=== PATIENT | female | born 1975 | race African-American/Black ===

== ENCOUNTER → 2016-11-04 17:27 | Outpatient (CLI) | payer MEDICAID ==
[2009-07-09 06:48] VITALS: BMI 43.1
== END | disposition home or self-care (01) ==
LOC: D.MAMMO 13:15
DX: Z12.31 Encounter for screening mammogram for malignant neoplasm of breast (principal)

== ENCOUNTER 2018-07-26 10:00 | Outpatient (CLI) | payer MEDICAID ==
[2009-07-09 06:48] VITALS: BMI 43.1
== END 2018-07-26 10:30 | disposition home or self-care (01) ==
LOC: D.MAMMO 10:00
PROVIDERS: ATTEND Internal Medicine
DX: Z12.31 Encounter for screening mammogram for malignant neoplasm of breast (principal)